=== PATIENT | female | born 1965 | race Asian ===

== ENCOUNTER 2020-06-08 06:13 | Day surgery (SDC) | payer OTHER ==
[2020-06-04 14:48] VITALS: BMI 20.3
[2020-06-08 11:21] VITALS: TEMP 98.8
[2020-06-08 12:28] VITALS: BP 118/62; PULSE 65
[2020-06-08 13:15] LABS: BASO % 0.3 % (0-2.0); EOS % 1.3 % (0-4.5); HEMATOCRIT 39.2 % (32.4-45.2); HEMOGLOBIN 13.4 GM/dL (10.7-15.3); LYMPH % 33.5 % (8-40); MCH 30.5 pg (25.7-33.7); MCHC 34.1 g/dl (32.0-36.0); MEAN CELL VOLUME 89.5 fl (80-96); MEAN PLT VOLUME 7.7 fl (7.5-11.1); MONO % 4.6 % (3.8-10.2); NEUT % 60.3 % (42.8-82.8); PLATELET COUNT 236 K/MM3 (134-434); RBC 4.38 M/mm3 (3.60-5.2); RDW 12.9 % (11.6-15.6); WHITE BLOOD COUNT 5.5 K/mm3 (4.0-10.0)
[2020-06-08 13:33] LABS: CHLORIDE 105 mmol/L (98-107); POTASSIUM 4.1 mmol/L (3.5-5.1); SODIUM 143 mmol/L (136-145)
[2020-06-08 13:36] LABS: ALBUMIN 4.1 g/dl (3.4-5.0); CALCIUM 9.3 mg/dL (8.5-10.1)
[2020-06-08 13:37] LABS: ANION GAP 6 MMOL/L (8-16); BLOOD UREA NITROGEN 9.1 mg/dL (7-18); CO2 32 mmol/L (21-32); GLUCOSE,RANDOM 88 mg/dL (74-106)
[2020-06-08 13:40] LABS: CREATININE 0.6 mg/dL (0.55-1.3); SGOT/AST 24 U/L (15-37); SGPT/ALT 38 U/L (13-61)
[2020-06-08 13:41] LABS: BILIRUBIN,TOTAL 1.1 mg/dL (0.2-1); TOT PROT 7.2 g/dl (6.4-8.2)
[2020-06-08 13:42] LABS: ALK PHOS 71 U/L (45-117)
[2020-06-09 12:07] LABS: TRANSGLUTAMINASE IGA < 2 U/mL (0-3); TRANSGLUTAMINASE IGG 9 U/mL (0-5)
[2020-06-11 17:10] LABS: ATYPICAL pANCA <1:20 titer (Neg:<1:20); C-ANCA <1:20 titer (Neg:<1:20)
[2020-06-13 14:07] LABS: VASOACTIVE INTEST, POLYPEPTIDE 64.1 pg/mL (0.0-58.8)
== END 2020-06-08 12:46 | disposition home or self-care (01) ==
LOC: JASU-ENDO 06:13
PROVIDERS: ATTEND Internal Medicine Gastroenterology
PROC: 0DBN8ZX Excision of Sigmoid Colon, Via Natural or Artificial Opening Endoscopic, Diagnostic (ICD-10-PCS; 2020-06-08)
PROC: 0DB98ZX Excision of Duodenum, Via Natural or Artificial Opening Endoscopic, Diagnostic (ICD-10-PCS; 2020-06-08)
PROC: 0DB68ZX Excision of Stomach, Via Natural or Artificial Opening Endoscopic, Diagnostic (ICD-10-PCS; 2020-06-08)
PROC: 0DBH8ZX Excision of Cecum, Via Natural or Artificial Opening Endoscopic, Diagnostic (ICD-10-PCS; principal; 2020-06-08 11:00)
DX: Z12.11 Encounter for screening for malignant neoplasm of colon (principal); R19.7 Diarrhea, unspecified; K29.50 Unspecified chronic gastritis without bleeding
CPT/HCPCS: 36415; 80053; 83036; 83516; 83520; 84586; 85025; 86140; 86256; 86671; 87045; 87046; 87177; 87209; 88305-TC; 88342-TC

== ENCOUNTER 2021-11-28 13:15 | Emergency (ER) | payer BC, OTHER ==
[2021-11-28 13:29] VITALS: BP 133/69; PULSE 81; TEMP 98.5; BMI 20.3
[2021-11-28] MEDS ORDERED: BEBTELOVIMAB (EUA) 175 MG/2 ML VIAL IVPUSH ONE (13:55)
== END 2021-11-28 17:00 | disposition home or self-care (01) ==
LOC: JER 13:15
DX: U07.1 COVID-19 (principal)
CPT/HCPCS: 99284-25; Q0222

== ENCOUNTER 2024-02-27 23:02 | Emergency (ER) | payer BC, OTHER ==
[2024-02-27 23:13] VITALS: RESP 18; TEMP 98.2
[2024-02-27 23:28] LABS: URINE APPEARANCE CLEAR; URINE BILIRUBIN NEGATIVE (NEGATIVE); URINE COLOR YELLOW; URINE GLUCOSE (UA) NEGATIVE (NEGATIVE); URINE KETONE NEGATIVE (NEGATIVE); URINE LEUK ESTERASE 3+ (NEGATIVE); URINE NITRITE NEGATIVE (NEGATIVE); URINE PROTEIN 1+ (NEGATIVE); URINE UROBILINOGEN 0.2 mg/dL (0.2-1.0)
[2024-02-27 23:43] LABS: EPI CELLS 3.6 /uL (0-25.1); URINE BACTERIA 2157.3 /uL (0-1359); URINE WBC 521.3 /uL (0-25.8)
[2024-02-28] MEDS ORDERED: KETOROLAC TROMETHAMINE 15 MG/ML VIAL ONE (00:09)
[2024-02-28] MEDS: KETOROLAC TROMETHAMINE 15 MG/ML VIAL IM ONE (00:13)
[2024-02-28] MEDS ORDERED: CEPHALEXIN MONOHYDRATE 500 MG CAPSULE (UD) ONE (00:48)
[2024-02-28] MEDS: CEPHALEXIN MONOHYDRATE 500 MG CAPSULE (UD) PO ONE (00:52)
[2024-02-28 01:03] VITALS: BP 145/52; PULSE 59
== END 2024-02-28 01:04 | disposition home or self-care (01) ==
LOC: JER 23:02
PROC: 3E0133Z Introduction of Anti-inflammatory into Subcutaneous Tissue, Percutaneous Approach (ICD-10-PCS; principal; 2024-02-28)
DX: N39.0 Urinary tract infection, site not specified (principal); R30.0 Dysuria; R31.9 Hematuria, unspecified; M54.9 Dorsalgia, unspecified
CPT/HCPCS: 81003; 87086; 87186; 99284-25